=== PATIENT | female | born 1930 | race Caucasian/White ===

== ENCOUNTER 2020-01-22 16:31 | Emergency (ER) | payer MEDICARE ==
[~2020-01-22] VITALS: Ht 154.9 cm; Wt 54.0 kg
[2020-01-22] MEDS ORDERED: PRINIVIL10 MG PO (16:47)
[2020-01-22] MEDS ORDERED: LIPITOR10 MG PO (16:47)
[2020-01-22] MEDS ORDERED: FOSAMAX 70 MG T70 MG PO (16:47)
[2020-01-22] MEDS ORDERED: LEVO-T50 MCG PO (16:47)
[2020-01-22] MEDS ORDERED: ASA81BEC PO (16:48)
[2020-01-22] MEDS ORDERED: IRON256 MG PO (16:48)
[2020-01-22] MEDS ORDERED: ULTRAM50 MG PO (16:49)
[2020-01-22] MEDS ORDERED: CALCIUM500 MG PO (16:49)
[2020-01-22] MEDS ORDERED: VITAMIN D22000 UNIT PO (16:49)
[2020-01-22] MEDS ORDERED: OMEPRAZOLE20 M3 PO (16:50)
[2020-01-22] MEDS ORDERED: ZPAK PO (17:37)
[2020-01-22 18:09] VITALS: BP 134/59
--- NOTE | 2020-01-23 10:33 | EKG ---
[place] [address] ELECTROCARDIOGRAM REPORT Name: FELIX CURRAN Room: [facility]#: [id number] Admission: 01/22/20 Attend Phys: Discharge: 01/22/20 Date of : [birth year] Date of Service: 01/22/20 1700 Report #: [id number] THIS REPORT FOR: //name// [facility] ED Test Date: 2020-01-22 Test Time: 17:00:00 Pat Name: FELIX CURRAN Department: Room: Gender: F Broker: DONNA : 1930 Requested By: Gen Simon Order Number: [id number] MD: Gaston Barnard Measurements Intervals [place] Rate: 72 P: 52 CA: 162 QRS: -44 QRSD: 121 T: 90 QT: 397 QTc: 435 Interpretive Statements Sinus rhythm left axis nonspecific t wave changes Compared to ECG 03/16/2009 09:59:21 Sinus bradycardia no longer present Atrial premature complex(es) no longer present Electronically Signed On 01-23-2020 10:31:53 CDT by Gaston Barnard [email or web address] <ELECTRONICALLY SIGNED> By: Gaston Barnard MD, FAC 01/23/20 1031 1700 1700 Gaston Barnard MD, [facility] /EPI
== END 2020-01-22 18:10 | disposition home or self-care (01) ==
LOC: M.ERS 16:31
DX: J40 Bronchitis, not specified as acute or chronic (principal); I10 Essential (primary) hypertension; K21.9 Gastro-esophageal reflux disease without esophagitis; Z90.49 Acquired absence of other specified parts of digestive tract

== ENCOUNTER → 2020-05-28 | Outpatient (CLI) | payer MEDICARE ==
[~2020-05-28] MED LIST: ASA81BEC PO; CALCIUM500 MG PO; FOSAMAX 70 MG T70 MG PO; IRON256 MG PO; LEVO-T50 MCG PO; LIPITOR10 MG PO; OMEPRAZOLE20 M3 PO; PRINIVIL10 MG PO; ULTRAM50 MG PO; VITAMIN D22000 UNIT PO; ZPAK PO
--- NOTE | 2020-05-28 11:05 | 2DMMODE ---
[place] [address] 2 D/M-MODE ECHOCARDIOGRAM Name: BINACUONGRADHA Plata Room: [facility]#: [id number] Admission: 05/28/20 Attend Phys: Ravi Duarte, Discharge: Date of : [birth year] Date of Service: 05/28/20 1105 Report #: [id number] THIS REPORT FOR: cc: Ravi Duarte John E. DO Blick, David R. MD [facility] ~ APPROVED REPORT Study performed: 05/28/2020 08:50:18 EXAM: Comprehensive 2D, Doppler, and color-flow Echocardiogram BSA: 1.49 HR: 65 bpm BP: 132/72 mmHg Other Information Study Quality: Good Indications Non Rheumatic Pulmonary Stenosis 2D Dimensions IVSd: 9.13 (7-11mm) LVOT Diam: 20.80 (18-24mm) LVDd: 42.44 mm PWd: 10.30 (7-11mm) Ascending Ao: 30.99 (22-36mm) LVDs: 25.99 (25-40mm) Aortic Root: 29.75 mm Volumes Left Atrial Volume (Systole) LA ESV Index: 24.70 mL/m2 Aortic Valve AoV Peak Blayne.: 1.81 m/s AO Peak Gr.: 13.09 mmHg LVOT Max P.47 mmHg AO Mean Gr.: 7.34 mmHg LVOT Mean P.27 mmHg LVOT Max V: 0.79 m/s AO V2 VTI: 40.54 cm LVOT Mean V: 0.52 m/s JONATHON (VTI): 1.47 cm2 LVOT V1 VTI: 17.58 cm Mitral Valve E/A Ratio: 1.91 MV Decel. Time: 145.04 [place] [address] 2 D/M-MODE ECHOCARDIOGRAM Name: FELIX CURRAN Room: [facility]#: [id number] Admission: 05/28/20 Attend Phys: Ravi Duarte, Discharge: Date of : [birth year] Date of Service: 05/28/20 1105 Report #: [id number] MV E Max Blayne.: 1.43 m/s MV PHT: 42.06 ms MVA (PHT): 5.23 cm2 TDI E/Lateral E': 13.00 E/Medial E': 13.00 Medial E' Blayne.: 0.11 m/s Lateral E' Blayne.: 0.11 m/s Pulmonary Valve PV Peak Blayne.: 1.33 m/s PV Peak Gr.: 7.06 mmHg Tricuspid Valve RAP Estimate: 5.00 mmHg TR Peak Gr.: 31.85 mmHg RVSP: 36.85 mmHg PA Pressure: 36.85 mmHg Left Ventricle The left ventricle is normal size. There is normal LV segmental wall motion. There is normal left ventricular wall thickness. Left ventricular systolic function is normal. The left ventricular ejection fraction is within the normal range. LVEF is 55-60%. The left ventricular diastolic function is normal. Right Ventricle The right ventricle is normal size. The right ventricular systolic function is normal. Atria The left atrium size is normal. The right atrium size is normal. Aortic Valve Moderate aortic valve sclerosis. Mild aortic regurgitation. There is no aortic valvular stenosis. Mitral Valve Mitral valve leaflets are mildly thickened. Mild mitral annular calcification. Moderate mitral regurgitation. No evidence of mitral valve stenosis. Tricuspid Valve The tricuspid valve is normal in structure. Mild tricuspid regurgitation. estimated pa pressure 40 [place] [address] 2 D/M-MODE ECHOCARDIOGRAM Name: FELIX CURRAN Boni Room: [facility]#: [id number] Admission: 05/28/20 Attend Phys: Ravi Duarte, Discharge: Date of : [birth year] Date of Service: 05/28/20 1105 Report #: [id number] Pulmonic valve is not well visualized. There is trace pulmonic valvular regurgitation. Great Vessels The aortic root is normal in size. IVC is normal in size and collapses >50% with inspiration. Pericardium There is no pericardial effusion. <Conclusion> LVEF is 55-60%. Moderate aortic valve sclerosis. Mild aortic regurgitation. Moderate mitral regurgitation. Mild tricuspid regurgitation. estimated pa pressure 40 mm Hg <ELECTRONICALLY SIGNED> By: Gaston Barnard MD, [facility] 05/28/20 1105 1105 1105 Gaston Barnard MD, FACC /INF
== END ==
LOC: M.CRD 08:17
PROVIDERS: ATTEND Family Medicine
DX: I08.3 Combined rheumatic disorders of mitral, aortic and tricuspid valves (principal)